=== PATIENT | female | born 1930 | race Hispanic/Latino ===

== ENCOUNTER 2017-10-21 19:10 | Observation (INO) | payer MEDICARE, BC ==
[2017-10-21] MEDS ORDERED: Labetalol 5 mg/ml Inj 20ML IVP STA (19:35)
--- NOTE | 2017-10-21 19:46 | ED PDOC ---
HPI: Hypertension/Hypotension Time Seen by Provider: 10/21/17 19:19 Chief Complaint (Nursing): High Blood Pressure Chief Complaint (Provider): "I dont feel right" History Per: Patient History/Exam Limitations: no limitations Onset/Duration Of Symptoms: Hrs (approx 8), Sudden Onset Current Symptoms Are (Timing): Intermittent Episodes Associated Symptoms: Dizziness, Headache. denies: Focal Weakness Quality Of Symptoms: Extra Beats Severity: Moderate Exacerbating Factor(s): Pos: None Additional Complaint(s): 87yo female c/o "not feeling well"- describes dizziness/ lightheadedness along with mild frontal headache and fatigue. Denies chest pain, SOB, change in speech, vision or focal weakness. Denies vomiting, diarrhea or fever. States adherence to medications today including her BP medications. Also notes chronic L leg paresthesias secondary to low back surgery and mild lower extremity edema. 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 States started on plavix several years ago after syncopal episode in [place] revealing R carotid stenosis. Also notes past hx of "leaky valve" but denies recent echocardiogram. Past Medical History Reviewed: Historical Data, Nursing Documentation, Vital Signs Vital Signs: Last Vital Signs Temp 97 F L 10/21/17 19:16 Pulse 76 10/21/17 19:16 Resp 16 10/21/17 19:16 BP 208/96 H 10/21/17 19:16 Pulse Ox 97 10/21/17 19:16 - Medical History PMH: Diabetes, HTN Other PMH: carotid stenosis - Surgical History Other surgeries: hysterectomy, low back sx - Family History Family History: States: Unknown Family Hx - Social History Current smoker - smoking cessation education provided: No - Home Medications Home Medications: Ambulatory Orders Medication Instructions Recorded Aspirin [Ecotrin] 81 mg PO DAILY 10/21/17 Clopidogrel [Plavix] 75 mg PO DAILY 10/21/17 Metoprolol Succinate [Toprol XL] 25 mg PO DAILY 10/21/17 Olmesartan/Hydrochlorothiazide 1 tab PO DAILY 10/21/17 [Benicar Hct 40-12.5 mg Tablet] Rosuvastatin Calcium [Crestor] 10 mg PO DAILY 10/21/17 metFORMIN [glucOPHAGE] 500 mg PO BID 10/21/17 - Allergies Allergies/Adverse Reactions: Allergies Allergy/AdvReac Type Severity Reaction Status Date / Time No Known Allergies Allergy Verified 10/21/17 19:16 Review of Systems Constitutional: Positive for: Weakness. Negative for: Fever Eyes: Negative for: Vision Change ENT: Negative for: Ear Pain, Ear Discharge, Throat Pain Cardiovascular: Positive for: Palpitations, Edema, Light Headedness. Negative for: Chest Pain Respiratory: Negative for: Cough, Shortness of Breath Gastrointestinal: Negative for: Nausea, Vomiting, Abdominal Pain Genitourinary Female: Negative for: Dysuria, Frequency Musculoskeletal: Negative for: Neck Pain Skin: Negative for: Rash, Lesions, Jaundice Neurological: Positive for: Weakness (generalized), Headache, Dizziness. Negative for: Numbness, Change in Speech, Confusion, Seizures Psych: Negative for: Anxiety, Depression Physical Exam - Reviewed Nursing Documentation Reviewed: Yes Vital Signs Reviewed: Yes - Physical Exam Appears: Positive for: Well, Non-toxic, No Acute Distress Head Exam: Positive for: ATRAUMATIC, NORMAL INSPECTION, NORMOCEPHALIC Skin: Positive for: Normal Color, Warm, DRY Eye Exam: Positive for: EOMI, Normal appearance, PERRL ENT: Positive for: Normal ENT Inspection Neck: Positive for: Normal, Painless ROM Cardiovascular/Chest: Positive for: Regular Rate, Rhythm, Irregularly Irregular (frequent PVCS). Negative for: Tachycardia Respiratory: Positive for: CNT, Normal Breath Sounds Gastrointestinal/Abdominal: Positive for: Normal Exam, Soft. Negative for: Tenderness Back: Positive for: Normal Inspection Extremity: Positive for: Normal ROM, Swelling (mild LE edema b/l) Neurologic/Psych: Positive for: Alert, inserter II-XII (intact), Oriented, Cerebellar Tests (intact finger to nose). Negative for: Motor/Sensory Deficits (strength 5/5 all ext), Aphasia, Facial Droop - Laboratory Results Result Diagrams: 10/21/17 19:41 10/21/17 19:41 - ECG ECG: Positive for: Interpreted By Me ECG Rhythm: Positive for: Sinus Rhythm Interpretation Of Abn EKG: frequent PVCs, trigeminy, 1st deg AV block O2 Sat by Pulse Oximetry: 97 Medical Decision Making Medical Decision Making: workup for presyncope with accelerated BP initiated labs / EKG/ CT brain ordered labetolol 10mg IV ordered She continues to deny chest pain COMPARISON: CT - HEAD^HEAD_ROUTINE (ADULT) 2010-06-18 01:02 FINDINGS: Brain: No intracranial hemorrhage. There is global parenchymal volume loss. Periventricular hypoattenuation is likely due to small vessel disease. No evidence of evolved territorial infarct or cerebral edema. No mass effect or midline shift. Ventricles: Prominent ventricles secondary to volume loss. Bones/joints: No acute osseous abnormality. Soft tissues: No soft tissue swelling. Sinuses: Visualized paranasal sinuses are clear. Mastoid air cells: Left mastoid effusion. IMPRESSION: 1. No acute intracranial findings. 2. Left mastoid effusion. Thank you for allowing us to participate in the care of your patient. Dictated and Authenticated by: Horace Molina MD 10/21/2017 8:37 PM Eastern Time ([place] & [place]) = labs reviewed and clinically unremarkable, mild elev BUN trop/BNP neg Patient denies any ear pain, L ear /mastoid exam nontender, no erythema, likely not mastoiditis D/w Dr Ramirez hospitalist 950p for tele obs given presentation and clinical findings, EKG changes, marked elev BP and risk factors. Disposition - Disposition Forms: [employer] ([place])
[2017-10-21 19:58] LABS: BASO # 0.1 K/uL (0.0-0.2); BASO % 0.6 % (0.0-2.0); EOS # 0.2 K/uL (0.0-0.7); EOS % 2.4 % (0.0-4.0); LYMPH % 35.1 % (20.0-40.0); MEAN CELL VOLUME 92.1 fl (81.0-99.0); MEAN CORPUSCULAR HEMOGLOBIN 30.8 pg (27.0-31.0); MEAN CORPUSCULAR HGB CONC 33.4 g/dL (33.0-37.0); MEAN PLATELET VOLUME 9.6 fl (7.2-11.7); MONO # 0.7 K/uL (0.0-0.8); MONO % 7.9 % (0.0-10.0); NEUT # 4.7 K/uL (1.8-7.0); RBC 3.91 Mil/uL (3.80-5.20); RED CELL DISTRIBUTION WIDTH 13.9 % (11.5-14.5); WHITE BLOOD COUNT 8.7 K/uL (4.8-10.8)
[2017-10-21 20:02] LABS: INR 0.9 (0.9-1.2); PARTIAL THROMBOPLASTIN TIME 31.6 Seconds (25.6-37.1); PROTHROMBIN TIME 9.9 Seconds (9.8-13.1)
[2017-10-21 20:06] LABS: ALB/GLOB RATIO 1.3 (1.0-2.1); ALBUMIN 4.2 g/dL (3.5-5.0); ALT/SGPT 34 U/L (9-52); AST/SGOT 29 U/L (14-36); BLOOD UREA NITROGEN 25 mg/dl (7-17); CALCIUM 9.3 mg/dL (8.4-10.2); GFR AFRICAN-AMERICAN > 60; GFR NON-AFRICAN AMERICAN 53
[2017-10-21 20:17] LABS: B-TYPE NATRIURETIC PEPTIDE 155 pg/ml (0-900)
[2017-10-21] MEDS ORDERED: Labetalol 5 mg/ml Inj 20ML IVP PRN (21:53)
--- NOTE | 2017-10-21 21:53 | CP.PCM.HP ---
History of Present Illness - History of Present Illness History of Present Illness: CC: Feeling poorly, dizziness HPI: This is an 87 y/o female with HTN and DM2, but otherwise fairly healthy, who comes in with c/o generally feeling poorly since this AM. States she has been feeling cold, shaky, dizzy, and has had a headache. She took her BP at home and it was SBP 190+, so she called EMS. When they came, they retook BP and SBP was > 200, so they brought her to ER. She rec'd 10 mg of labetolol in ED and most of her symptoms have improved. She states that she has had similar symptoms off and on for the past month or so possibly. States that she had been dx'ed with R carotid stenosis on doppler and a 'leaky heart valve' on echo 5+ years ago, but not had much f/u on those, aside form being put on ASA and Plavix. Denies any CP, SOB, or actual syncope. No other c/c. 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, HLD/ cardiovascular disease SHx: Hysterectomy, back surgery, GB, cataracts Allergies: NKDA Medications: per med rec Family Hx: reviewed, no relevant findings Social Hx: Lives alone here, but with family in [place]; Hx of tobacco distantly; Occ EtOH Surrogate: Daughter, info on chart Present on Admission - Present on Admission Any Indicators Present on Admission: No Past Patient History - Past Social History Smoking Status: Never Smoked - CARDIAC Hx Hypertension: Yes - ENDOCRINE/METABOLIC Hx Diabetes Mellitus Type 2: Yes - PSYCHIATRIC Hx Substance Use: No - SURGICAL HISTORY Hx Cholecystectomy: Yes Hx Hysterectomy: Yes - ANESTHESIA Hx Anesthesia: Yes Hx Anesthesia Reactions: No Hx Malignant Hyperthermia: No Meds Allergies/Adverse Reactions: Allergies Allergy/AdvReac Type Severity Reaction Status Date / Time No Known Allergies Allergy Verified 10/21/17 19:16 Physical Exam - Constitutional Appears: No Acute Distress - Head Exam Head Exam: ATRAUMATIC, NORMOCEPHALIC - Eye Exam Eye Exam: EOMI, PERRL - ENT Exam ENT Exam: Mucous Membranes Moist - Neck Exam Neck exam: Positive for: Full Rom Additional comments: no carotid bruits auscultated - Respiratory Exam Respiratory Exam: Clear to Auscultation Bilateral, NORMAL BREATHING PATTERN - Cardiovascular Exam Cardiovascular Exam: REGULAR RHYTHM, +S1, +S2 Additional comments: no obvious murmurs - GI/Abdominal Exam GI & Abdominal Exam: Normal Bowel Sounds, Soft - Extremities Exam Extremities exam: Positive for: full ROM, normal inspection - Neurological Exam Neurological exam: Alert, CN II-XII Intact, Oriented x3 - Psychiatric Exam Psychiatric exam: Normal Affect, Normal Mood - Skin Skin Exam: Dry, Warm Results - Vital Signs Recent Vital Signs: Last Vital Signs Temp 97 F L 10/21/17 19:16 Pulse 93 H 10/21/17 21:30 Resp 18 10/21/17 21:30 BP 181/83 H 10/21/17 21:30 Pulse Ox 97 10/21/17 21:45 - Labs Result Diagrams: 10/21/17 19:41 10/21/17 19:41 Labs: Laboratory Results - last 24 hr 10/21/17 10/21/17 10/21/17 19:27 19:41 19:41 WBC 8.7 RBC 3.91 Hgb 12.0 Hct 36.0 MCV 92.1 MCH 30.8 MCHC 33.4 RDW 13.9 Plt Count 278 MPV 9.6 Neut % (Auto) 54.0 Lymph % (Auto) 35.1 [place] % (Auto) 7.9 Eos % (Auto) 2.4 Baso % (Auto) 0.6 Neut # (Auto) 4.7 Lymph # (Auto) 3.0 [place] # (Auto) 0.7 Eos # (Auto) 0.2 Baso # (Auto) 0.1 PT INR APTT Sodium 138 Potassium 4.3 Chloride 100 Carbon Dioxide 22 Anion Gap 20 BUN 25 H Creatinine 1.0 Est GFR ( Amer) > 60 Est GFR (Non-Af Amer) 53 POC Glucose (mg/dL) 126 H Random Glucose 134 H Calcium 9.3 Total Bilirubin 0.4 AST 29 ALT 34 Alkaline Phosphatase 74 Troponin I < 0.0120 NT-Pro-B Natriuret Pep 155 Total Protein 7.4 Albumin 4.2 Globulin 3.2 Albumin/Globulin Ratio 1.3 10/21/17 19:41 WBC RBC Hgb Hct MCV MCH MCHC RDW Plt Count MPV Neut % (Auto) Lymph % (Auto) [place] % (Auto) Eos % (Auto) Baso % (Auto) Neut # (Auto) Lymph # (Auto) [place] # (Auto) Eos # (Auto) Baso # (Auto) PT 9.9 INR 0.9 APTT 31.6 Sodium Potassium Chloride Carbon Dioxide Anion Gap BUN Creatinine Est GFR ( Amer) Est GFR (Non-Af Amer) POC Glucose (mg/dL) Random Glucose Calcium Total Bilirubin AST ALT Alkaline Phosphatase Troponin I NT-Pro-B Natriuret Pep Total Protein Albumin Globulin Albumin/Globulin Ratio - EKG Data EKG Interpreted by: Myself EKG shows normal: Sinus rhythm Rate: Normal - EKG Data EKG comments: 1 deg AV bloc, freq PVCs - Imaging and Cardiology CT scan - head Status: Image reviewed by me (1. No acute intracranial findings.), Report reviewed by me Chest x-ray Status: Image reviewed by me (No obvious findings on CXR) Assessment & Plan (1) Dizziness and giddiness Assessment and Plan: 87 y/o female with HTN/DM2/CVX presenting with ?dizziness and multiple nonspec symptoms. 1) Dizziness -Tele -Serial trops -Echo in AM -Dopplers in AM -Consider cardiology and/or neuro consult as necessary 2) Uncontrolled HTN -Continue home BP medications -Labetolol IV PRN -Serial trops as above 3) DM2 -ACHS accuchecs -SSI -DM diet -Resume metformin in AM if no imaging with contrast indicated 4) DVT PPx -- SQ Lovenox Status: Acute (2) DM2 (diabetes mellitus, type 2) Status: Acute (3) Accelerated hypertension Status: Acute (4) DVT prophylaxis Status: Acute
[2017-10-22 05:55] LABS: HEMOGLOBIN 11.1 g/dL (12.0-16.0); MEAN CELL VOLUME 91.9 fl (81.0-99.0); MEAN CORPUSCULAR HEMOGLOBIN 30.7 pg (27.0-31.0); MEAN CORPUSCULAR HGB CONC 33.4 g/dL (33.0-37.0); RBC 3.62 Mil/uL (3.80-5.20); WHITE BLOOD COUNT 10.7 K/uL (4.8-10.8)
[2017-10-22 06:36] LABS: BLOOD UREA NITROGEN 21 mg/dl (7-17); CALCIUM 9.1 mg/dL (8.4-10.2); GFR AFRICAN-AMERICAN > 60; GFR NON-AFRICAN AMERICAN 53
[2017-10-22] MEDS ORDERED: Enoxaparin 80 mg Syringe SC STA (06:48)
[2017-10-22 07:25] LABS: URINE BACTERIA RARE (<OCC); URINE BILIRUBIN NEGATIVE (NEGATIVE); URINE BLOOD NEGATIVE (NEGATIVE); URINE CLARITY CLEAR (Clear); URINE COLOR STRAW (YELLOW); URINE GLUCOSE (UA) NEG (Normal); URINE LEUKOCYTE ESTERASE SMALL Leu/uL (Negative); URINE PROTEIN NEGATIVE (NEGATIVE); URINE UROBILINOGEN 0.2-1.0 mg/dL (0.2-1.0)
[2017-10-22] MEDS: Insulin Lispro (humaLOG) 100 Units/ml Inj SC SCH ×3 (07:29→17:31)
--- NOTE | 2017-10-22 07:39 | CT ---
PROCEDURE: CT HEAD WITHOUT CONTRAST. HISTORY: r/o ICH. High blood pressure. COMPARISON: 06/18/2010 TECHNIQUE: Axial computed tomography images were obtained through the head/brain without intravenous contrast. Radiation dose: Total exam DLP = 783 mGy-cm. This CT exam was performed using one or more of the following dose reduction techniques: Automated exposure control, adjustment of the mA and/or kV according to patient size, and/or use of iterative reconstruction technique. FINDINGS: HEMORRHAGE: No intracranial hemorrhage. BRAIN: No mass effect or edema. Scattered focal lucencies in the subcortical and periventricular white matter suggestive for chronic microvascular ischemic change. Global parenchymal volume loss. More confluent low attenuation seen within the left periventricular white matter at the level of the anterior frontal horn on series 4, image 27 may represent chronic ischemic change. VENTRICLES: Prominent ventricles secondary to volume loss. CALVARIUM: Unremarkable. PARANASAL SINUSES: Unremarkable as visualized. No significant inflammatory changes. MASTOID AIR CELLS: Left mastoid effusion. OTHER FINDINGS: None. IMPRESSION: No acute intracranial abnormality. Chronic microvascular ischemic changes. Left mastoid effusion. If symptoms persists, consider further evaluation with MRI. These findings were preliminarily reported at 8:37 p.m. on 10/21/[address] Horace Molina from [facility].
[2017-10-22 08:05] VITALS: RESP 20
--- NOTE | 2017-10-22 08:44 | RAD ---
HISTORY: generalized weakness COMPARISON: Chest radiograph dated 03/15/2010. FINDINGS: LUNGS: Left midlung scarring. No active pulmonary disease. PLEURA: No significant pleural effusion identified, no pneumothorax apparent. CARDIOVASCULAR: Mediastinal silhouette unchanged. OSSEOUS STRUCTURES: Unchanged. VISUALIZED UPPER ABDOMEN: Right upper quadrant surgical clips redemonstrated. OTHER FINDINGS: None. IMPRESSION: No active disease.
[2017-10-22] MEDS ORDERED: Enoxaparin 40 mg Syringe SC SCH (09:00)
[2017-10-22] MEDS ORDERED: Patient's Own Med (Olmesartan/Hydrochlorothiazide [Benicar Hct 40-12.5 Mg Tablet] 1 TAB) PO SCH (09:00)
[2017-10-22] MEDS ORDERED: Metoprolol Succinate 25 mg XL Tab PO SCH (09:00)
--- NOTE | 2017-10-22 09:55 | CP.PCM.CON ---
History of Present Illness - History of Present Illness History of Present Illness: This 87-year-old female , a hypertensive and diabetic for more than 10 years came into the hospital complaining of a vague sense of discomfort and a sense of lightheadedness and weakness. She denies any chest pain or shortness of breath. A blood sample drawn for troponin estimation after her admission is elevated and hence this consultation. The patient is an ex-smoker who has not smoked for more than 10 years. She goes up and down a flight of stairs number of times in her house without experiencing any chest pain. Otherwise she is fairly sedentary. She has a history of back surgery more than 15 years back and has had numbness in right lower extremity. She denies any prior history of cardiac problems such as chest pain on exertion or shortness of breath with minimal exertion. Physical examination shows an elderly lady who is quite alert awake and coherent and quite free off any discomfort. Her pulse rate was 76 bpm and regular and her blood pressure was 160/60 mmHg. Her jugular venous pressure was not elevated and there was minimal pitting edema over left lower extremity. Her pedal pulses were well felt. A faint bruit was audible over the right carotid artery. The apex was not palpable. The first and second heart sounds are normal. There was no murmur or gallop there were no rales. Her abdomen was soft liver and spleen are not palpable. Her electrocardiogram at admission showed sinus rhythm with occasional premature ventricular beats. Lead V2 had a small R wave and upright T waves. Electro-cardiogram taken this morning shows inverted T waves in lead V2. Her lab tests show normal troponin at admission which on subsequent occasions has significantly gone up exceeding 2 ng per mL. Rest of her labs were noted. Impression: Acute non-Q-wave myocardial infarction.(NSTEMI) in a patient with hypertension and diabetes. The patient at this juncture is hemodynamically stable and chest pain-free. I've spoken with her daughter and the patient herself and I have strongly recommended proceeding with early coronary angiogram with an eye towards revascularization. In the meantime the patient has been started on aspirin and Plavix. Past Patient History - Past Medical History & Family History Past Medical History?: Yes - Past Social History Smoking Status: Never Smoked - CARDIAC Hx Cardiac Disorders: Yes Hx Hypercholesterolemia: Yes Hx Hypertension: Yes Other/Comment: Carotid stenosis - PULMONARY Hx Respiratory Disorders: No - NEUROLOGICAL Hx Neurological Disorder: No - HEENT Hx HEENT Problems: Yes Hx Cataracts: Yes - RENAL Hx Chronic Kidney Disease: No - ENDOCRINE/METABOLIC Hx Endocrine Disorders: Yes Hx Diabetes Mellitus Type 2: Yes - HEMATOLOGICAL/ONCOLOGICAL Hx Blood Disorders: No - INTEGUMENTARY Hx Dermatological Problems: No - MUSCULOSKELETAL/RHEUMATOLOGICAL Hx Musculoskeletal Disorders: No Hx Falls: No - GASTROINTESTINAL Hx Gastrointestinal Disorders: No - GENITOURINARY/GYNECOLOGICAL Hx Genitourinary Disorders: No - PSYCHIATRIC Hx Psychophysiologic Disorder: No Hx Substance Use: No - SURGICAL HISTORY Hx Surgeries: Yes Hx Cholecystectomy: Yes Hx Hysterectomy: Yes Other/Comment: Back surgery - ANESTHESIA Hx Anesthesia: Yes Hx Anesthesia Reactions: No Hx Malignant Hyperthermia: No Meds Allergies/Adverse Reactions: Allergies Allergy/AdvReac Type Severity Reaction Status Date / Time No Known Allergies Allergy Verified 10/21/17 19:16 - Medications Medications: Current Medications Aspirin (Aspirin) 325 mg PO DAILY [facility] Last Admin: 10/22/17 08:50 Dose: 325 mg Atorvastatin Calcium (Lipitor) 40 mg PO [facility] Clopidogrel Bisulfate (Plavix) 75 mg PO DAILY [facility] Last Admin: 10/22/17 08:47 Dose: 75 mg Hydrochlorothiazide (Microzide) 12.5 mg PO DAILY [facility] Last Admin: 10/22/17 08:47 Dose: 12.5 mg Insulin Human Lispro (Humalog) 0 units SC [facility] PRN Reason: Protocol Last Admin: 10/22/17 07:29 Dose: Not Given Labetalol HCl (Trandate) 10 mg IVP Q6H PRN PRN Reason: SBP > 180 Losartan Potassium (Cozaar) 100 mg PO DAILY [facility] Last Admin: 10/22/17 08:48 Dose: 100 mg Metoprolol Succinate (Toprol Xl) 25 mg PO DAILY [facility] Last Admin: 10/22/17 08:47 Dose: 25 mg Results - Vital Signs Recent Vital Signs: Last Vital Signs Temp 98.0 F 10/22/17 08:04 Pulse 74 10/22/17 08:48 Resp 20 10/22/17 08:04 BP 176/77 H 10/22/17 08:48 Pulse Ox 96 10/22/17 08:04 - Labs Result Diagrams: 10/22/17 04:45 10/22/17 04:45 Labs: Laboratory Results - last 24 hr 0410/21/17 10/21/17 19:27 19:41 19:41 WBC 8.7 RBC 3.91 Hgb 12.0 Hct 36.0 MCV 92.1 MCH 30.8 MCHC 33.4 RDW 13.9 Plt Count 278 MPV 9.6 Neut % (Auto) 54.0 Lymph % (Auto) 35.1 [place] % (Auto) 7.9 Eos % (Auto) 2.4 Baso % (Auto) 0.6 Neut # (Auto) 4.7 Lymph # (Auto) 3.0 [place] # (Auto) 0.7 Eos # (Auto) 0.2 Baso # (Auto) 0.1 PT INR APTT Sodium 138 Potassium 4.3 Chloride 100 Carbon Dioxide 22 Anion Gap 20 BUN 25 H Creatinine 1.0 Est GFR ( Amer) > 60 Est GFR (Non-Af Amer) 53 POC Glucose (mg/dL) 126 H Random Glucose 134 H Calcium 9.3 Total Bilirubin 0.4 AST 29 ALT 34 Alkaline Phosphatase 74 Troponin I < 0.0120 NT-Pro-B Natriuret Pep 155 Total Protein 7.4 Albumin 4.2 Globulin 3.2 Albumin/Globulin Ratio 1.3 Urine Color Urine Clarity Urine pH Ur Specific [place] Urine Protein Urine Glucose (UA) Urine Ketones Urine Blood Urine Nitrate Urine Bilirubin Urine Urobilinogen Ur Leukocyte Esterase Urine RBC (Auto) Urine Microscopic WBC Urine Bacteria 10/21/17 10/21/17 10/22/17 19:41 22:05 04:45 WBC 10.7 RBC 3.62 L Hgb 11.1 L Hct 33.3 L MCV 91.9 MCH 30.7 MCHC 33.4 RDW 14.0 Plt Count 256 MPV Neut % (Auto) Lymph % (Auto) [place] % (Auto) Eos % (Auto) Baso % (Auto) Neut # (Auto) Lymph # (Auto) [place] # (Auto) Eos # (Auto) Baso # (Auto) PT 9.9 INR 0.9 APTT 31.6 Sodium Potassium Chloride Carbon Dioxide Anion Gap BUN Creatinine Est GFR ( Amer) Est GFR (Non-Af Amer) POC Glucose (mg/dL) 117 H Random Glucose Calcium Total Bilirubin AST ALT Alkaline Phosphatase Troponin I NT-Pro-B Natriuret Pep Total Protein Albumin Globulin Albumin/Globulin Ratio Urine Color Urine Clarity Urine pH Ur Specific [place] Urine Protein Urine Glucose (UA) Urine Ketones Urine Blood Urine Nitrate Urine Bilirubin Urine Urobilinogen Ur Leukocyte Esterase Urine RBC (Auto) Urine Microscopic WBC Urine Bacteria 10/22/17 10/22/17 10/22/17 04:45 05:31 07:11 WBC RBC Hgb Hct MCV MCH MCHC RDW Plt Count MPV Neut % (Auto) Lymph % (Auto) [place] % (Auto) Eos % (Auto) Baso % (Auto) Neut # (Auto) Lymph # (Auto) [place] # (Auto) Eos # (Auto) Baso # (Auto) PT INR APTT Sodium 141 Potassium 4.6 Chloride 102 Carbon Dioxide 27 Anion Gap 17 BUN 21 H Creatinine 1.0 Est GFR ( Amer) > 60 Est GFR (Non-Af Amer) 53 POC Glucose (mg/dL) 106 Random Glucose 117 H Calcium 9.1 Total Bilirubin AST ALT Alkaline Phosphatase Troponin I 2.8400 H* NT-Pro-B Natriuret Pep Total Protein Albumin Globulin Albumin/Globulin Ratio Urine Color Straw Urine Clarity Clear Urine pH 7.0 Ur Specific [place] 1.005 Urine Protein Negative Urine Glucose (UA) Neg Urine Ketones Negative Urine Blood Negative Urine Nitrate Negative Urine Bilirubin Negative Urine Urobilinogen 0.2-1.0 Ur Leukocyte Esterase Small Urine RBC (Auto) < 1 Urine Microscopic WBC 3 Urine Bacteria Rare 10/22/17 07:11 WBC RBC Hgb Hct MCV MCH MCHC RDW Plt Count MPV Neut % (Auto) Lymph % (Auto) [place] % (Auto) Eos % (Auto) Baso % (Auto) Neut # (Auto) Lymph # (Auto) [place] # (Auto) Eos # (Auto) Baso # (Auto) PT INR APTT Sodium Potassium Chloride Carbon Dioxide Anion Gap BUN Creatinine Est GFR ( Amer) Est GFR (Non-Af Amer) POC Glucose (mg/dL) Random Glucose Calcium Total Bilirubin AST ALT Alkaline Phosphatase Troponin I 2.3200 H* NT-Pro-B Natriuret Pep Total Protein Albumin Globulin Albumin/Globulin Ratio Urine Color Urine Clarity Urine pH Ur Specific [place] Urine Protein Urine Glucose (UA) Urine Ketones Urine Blood Urine Nitrate Urine Bilirubin Urine Urobilinogen Ur Leukocyte Esterase Urine RBC (Auto) Urine Microscopic WBC Urine Bacteria
--- NOTE | 2017-10-22 12:09 | CP.PCM.PN ---
Subjective - Date & Time of Evaluation Date of Evaluation: 10/22/17 Time of Evaluation: 11:00 - Subjective Subjective: Pt denies CP no palpitation no dizziness at present no abd pain denies N/V discussed plan for Cardiac cath - pt agreed to the procedure Objective - Vital Signs/Intake and Output Vital Signs (last 24 hours): Temp Pulse Resp BP Pulse Ox 98 F 74 20 176/77 H 96 10/22/17 09:00 10/22/17 09:00 10/22/17 09:00 10/22/17 09:00 10/22/17 09:00 - Medications Medications: Current Medications Aspirin (Aspirin) 325 mg PO DAILY [facility] Last Admin: 10/22/17 08:50 Dose: 325 mg Atorvastatin Calcium (Lipitor) 40 mg PO [facility] Clopidogrel Bisulfate (Plavix) 75 mg PO DAILY [facility] Last Admin: 10/22/17 08:47 Dose: 75 mg Hydrochlorothiazide (Microzide) 12.5 mg PO DAILY [facility] Last Admin: 10/22/17 08:47 Dose: 12.5 mg Insulin Human Lispro (Humalog) 0 units SC ACHS [facility] PRN Reason: Protocol Last Admin: 10/22/17 07:29 Dose: Not Given Labetalol HCl (Trandate) 10 mg IVP Q6H PRN PRN Reason: SBP > 180 Losartan Potassium (Cozaar) 100 mg PO DAILY [facility] Last Admin: 10/22/17 08:48 Dose: 100 mg Metoprolol Succinate (Toprol Xl) 25 mg PO DAILY [facility] Last Admin: 10/22/17 08:47 Dose: 25 mg - Labs Labs: 10/22/17 04:45 10/22/17 04:45 PT 9.9 Seconds (9.8-13.1) 10/21/17 19:41 INR 0.9 (0.9-1.2) 10/21/17 19:41 APTT 31.6 Seconds (25.6-37.1) 10/21/17 19:41 - Constitutional Appears: No Acute Distress - Head Exam Head Exam: ATRAUMATIC, NORMAL INSPECTION, NORMOCEPHALIC - Eye Exam Eye Exam: EOMI, Normal appearance Pupil Exam: NORMAL ACCOMODATION - ENT Exam ENT Exam: Mucous Membranes Moist, Normal External Ear Exam - Neck Exam Neck Exam: Full ROM. absent: Meningismus - Respiratory Exam Respiratory Exam: NORMAL BREATHING PATTERN. absent: Rales, Respiratory Distress - Cardiovascular Exam Cardiovascular Exam: REGULAR RHYTHM, +S1, +S2 - GI/Abdominal Exam GI & Abdominal Exam: Soft, Normal Bowel Sounds. absent: Tenderness - Extremities Exam Extremities Exam: Full ROM, Normal Capillary Refill. absent: Calf Tenderness - Back Exam Back Exam: Full ROM. absent: CVA tenderness (L), CVA tenderness (R) - Neurological Exam Neurological Exam: Alert, Awake, CN II-XII Intact, Oriented x3 Neuro motor strength exam: Left Upper Extremity: 5, Right Upper Extremity: 5, Left Lower Extremity: 5, Right Lower Extremity: 5 - Psychiatric Exam Psychiatric exam: Normal Affect, Normal Mood - Skin Skin Exam: Dry, Normal Color, Warm Assessment and Plan (1) NSTEMI (non-ST elevated myocardial infarction) Status: Acute (2) Accelerated hypertension Status: Acute (3) DM2 (diabetes mellitus, type 2) Status: Chronic (4) DVT prophylaxis Status: Acute - Assessment and Plan (Free Text) Assessment: 87y/o lady with hx of HTN, DM, was brought in by ambulance, she was feeling weak, giddy and lightheaded at home so she took her BP and her BP was elevated so she called 911. She denies any CP, no palpitation, no SOB. 2nd Troponin came back + at 2.8. Cardiology was consulted- Dr Jan Malloy rec Cardiac catheterization. Plan to transfer pt to [facility] for Cardiac Cath (1) NSTEMI (non-ST elevated myocardial infarction) Status: Acute pt placed in Tele Troponin elevated EKG change : V2 T wave inversion cont ASA, Plavix, statin, BB , ARB and therapeutic Lovenox Dr Jan Malloy consulted- rec Cardiac cath Plan for transfer to [facility] for [facility] ECHO : EF =35-40%, mod to sever hypokinesia of the ant and septal wall (2) Accelerated hypertension Status: Acute Labetatlol 10 mg IV prn Increase Toprol to 50 mg daily cont Losartan (3) DM2 (diabetes mellitus, type 2) Status: Chronic accucheck with coverage d/c Metformin as pt is going for Cardiac cath (4) DVT prophylaxis Status: Acute Pt is on therapeutic Lovenox
--- NOTE | 2017-10-22 12:13 | CARD ---
APPROVED REPORT EXAM: Two-dimensional and M-mode echocardiogram with Doppler and color Doppler. Other Information Quality : GoodRhythm : NSR INDICATION Syncope 2D DIMENSIONS IVSd0.67 (0.7-1.1cm)LVDd5.16 (3.9-5.9cm) LVOT Diameter2.13 (1.8-2.4cm)PWd0.71 (0.7-1.1cm) IVSs0.85 (0.8-1.2cm)LVDs4.30 (2.5-4.0cm) FS (%) 16.8 %PWs0.85 (0.8-1.2cm) M-Mode DIMENSIONS Left Atrium (MM)4.68 (2.5-4.0cm)IVSd0.71 (0.7-1.1cm) Aortic Root2.91 (2.2-3.7cm)LVDd6.59 (4.0-5.6cm) Aortic Cusp Exc.2.03 (1.5-2.0cm)PWd0.94 (0.7-1.1cm) IVSs0.62 cmFS (%) 20 % LVDs5.29 (2.0-3.8cm)PWs1.15 cm Mitral Valve MV E Gluiflmp88.6cm/sMV DECEL [id number] A Hdbbapdz090.8cm/s MV UPT03qkF/A ratio0.7MVA (PHT)3.27cm2 TDI Lateral E' Peak V8.15cm/sMedial E' Peak V6.93cm/sE/Lateral E'8.9 E/Medial E'10.5 LEFT VENTRICLE The left ventricle is normal size. The systolic function is mildly to moderately impaired. The Ejection Fraction is 35-40%. There is moderate to severe hypokinesis in the anterior and septal wals. Transmitral Doppler flow pattern is Grade I-abnormal relaxation pattern. RIGHT VENTRICLE The right ventricle is normal size. The right ventricular systolic function is normal. ATRIA The left atrium size is normal. The right atrium size is normal. AORTIC VALVE The aortic valve is normal in structure. No aortic regurgitation is present. There is no aortic valvular stenosis. MITRAL VALVE The mitral valve is normal in structure. There is no mitral valve stenosis. Mitral regurgitation is mild to moderate. TRICUSPID VALVE The tricuspid valve is normal in structure. There is no tricuspid valve regurgitation noted. PULMONIC VALVE The pulmonary valve is normal in structure. There is no pulmonic valvular regurgitation. GREAT VESSELS The aortic root is normal in size. The IVC is normal in size and collapses >50% with inspiration. PERICARDIAL EFFUSION The pericardium appears normal. <Conclusion> The left ventricle is normal size. The systolic function is mildly to moderately impaired. The Ejection Fraction is 35-40%. There is moderate to severe hypokinesis in the anterior and septal wals. Mitral regurgitation is mild to moderate.
[2017-10-22 12:25] VITALS: BP 155/78; PULSE 75; TEMP 97.9
--- NOTE | 2017-10-22 12:48 | US ---
PROCEDURE: Duplex ultrasound of the carotid and vertebral arteries. HISTORY: syncope/TIA COMPARISON: None available. TECHNIQUE: Grayscale and duplex Doppler evaluation of the cervical carotid and vertebral arteries were performed. The common carotid, carotid bifurcations and cervical ICA and proximal ECA were evaluated. The vertebral arteries were evaluated for gross patency and direction. FINDINGS: RIGHT CAROTID ARTERIES: Common Carotid Artery: Calcific plaque. Maximal flow velocity of 75.6 cm/s. Carotid Bifurcation: Calcific plaque. Internal Carotid Artery:Calcific plaque. Maximal flow velocity of 93.1 cm/s. External Carotid Artery (proximal branches): Normal. Maximal flow velocity of 77.9 cm/s. ICA/CCA Ratio: 1.6 LEFT CAROTID ARTERIES: Common Carotid Artery: Calcific plaque. Maximal flow velocity of 72.4 cm/s. Carotid Bifurcation: Calcific plaque. Internal Carotid Artery:Calcific plaque. Maximal flow velocity of 70.1 cm/s. External Carotid Artery (proximal branches): Normal. Maximal flow velocity of 100.8 cm/s. ICA/CCA Ratio: 1.0 VERTEBRAL ARTERIES: Right Vertebral Artery: Patent. Antegrade flow. Left Vertebral Artery: Patent. Antegrade flow. OTHER FINDINGS: None. IMPRESSION: Per NASCET criteria, less than 50 percent stenosis of the internal carotid arteries, bilaterally.
--- NOTE | 2017-10-22 13:08 | CP.PCM.PN ---
Subjective - Date & Time of Evaluation Date of Evaluation: 10/22/17 Time of Evaluation: 13:05 - Subjective Subjective: Pt's daughter arrived from [place] Spoke with her and the pt Findings of EKG/Labs and Echo described Early cor angio recommended and accepted by pt and daughter Pt to go to [facility] under Dr. Martinez's care. Pt stable to make the trip Objective - Vital Signs/Intake and Output Vital Signs (last 24 hours): Temp Pulse Resp BP Pulse Ox 97.9 F 75 20 155/78 H 96 10/22/17 12:24 10/22/17 12:24 10/22/17 12:24 10/22/17 12:24 10/22/17 12:24 - Medications Medications: Current Medications Aspirin (Aspirin) 325 mg PO DAILY [facility] Last Admin: 10/22/17 08:50 Dose: 325 mg Atorvastatin Calcium (Lipitor) 40 mg PO HS [facility] Clopidogrel Bisulfate (Plavix) 75 mg PO DAILY [facility] Last Admin: 10/22/17 08:47 Dose: 75 mg Clopidogrel Bisulfate (Plavix) 525 mg PO ONCE ONE Stop: 10/22/17 13:05 Hydrochlorothiazide (Microzide) 12.5 mg PO DAILY [facility] Last Admin: 10/22/17 08:47 Dose: 12.5 mg Insulin Human Lispro (Humalog) 0 units SC ACHS [facility] PRN Reason: Protocol Last Admin: 10/22/17 07:29 Dose: Not Given Labetalol HCl (Trandate) 10 mg IVP Q6H PRN PRN Reason: SBP > 180 Losartan Potassium (Cozaar) 100 mg PO DAILY [facility] Last Admin: 10/22/17 08:48 Dose: 100 mg Metoprolol Succinate (Toprol Xl) 25 mg PO DAILY [facility] Last Admin: 10/22/17 08:47 Dose: 25 mg - Labs Labs: 10/22/17 04:45 10/22/17 04:45 PT 9.9 Seconds (9.8-13.1) 10/21/17 19:41 INR 0.9 (0.9-1.2) 10/21/17 19:41 APTT 31.6 Seconds (25.6-37.1) 10/21/17 19:41
[2017-10-22 13:52] VITALS: O2SAT 98
--- NOTE | 2017-10-22 18:36 | CP.PCM.DIS ---
Provider - Provider Date of Admission: 10/22/17 15:39 Attending physician: Keira Ramirez MD Primary care physician: Dr Garcia Consults: Cardio: Dr Jan Malloy Time Spent in preparation of Discharge (in minutes): 30 Diagnosis - Discharge Diagnosis (1) NSTEMI (non-ST elevated myocardial infarction) Status: Acute (2) Accelerated hypertension Status: Acute (3) DM2 (diabetes mellitus, type 2) Status: Chronic (4) DVT prophylaxis Status: Acute Hospital Course - Lab Results Lab Results: Most Recent Lab Values WBC 10.7 K/uL (4.8-10.8) 10/22/17 04:45 RBC 3.62 Mil/uL (3.80-5.20) L 10/22/17 04:45 Hgb 11.1 g/dL (12.0-16.0) L 10/22/17 04:45 Hct 33.3 % (34.0-47.0) L 10/22/17 04:45 MCV 91.9 fl (81.0-99.0) 10/22/17 04:45 MCH 30.7 pg (27.0-31.0) 10/22/17 04:45 MCHC 33.4 g/dL (33.0-37.0) 10/22/17 04:45 RDW 14.0 % (11.5-14.5) 10/22/17 04:45 Plt Count 256 K/uL (130-400) 10/22/17 04:45 MPV 9.6 fl (7.2-11.7) 10/21/17 19:41 Neut % (Auto) 54.0 % (50.0-75.0) 10/21/17 19:41 Lymph % (Auto) 35.1 % (20.0-40.0) 10/21/17 19:41 Bee % (Auto) 7.9 % (0.0-10.0) 10/21/17 19:41 Eos % (Auto) 2.4 % (0.0-4.0) 10/21/17 19:41 Baso % (Auto) 0.6 % (0.0-2.0) 10/21/17 19:41 Neut # (Auto) 4.7 K/uL (1.8-7.0) 10/21/17 19:41 Lymph # (Auto) 3.0 K/uL (1.0-4.3) 10/21/17 19:41 Bee # (Auto) 0.7 K/uL (0.0-0.8) 10/21/17 19:41 Eos # (Auto) 0.2 K/uL (0.0-0.7) 10/21/17 19:41 Baso # (Auto) 0.1 K/uL (0.0-0.2) 10/21/17 19:41 PT 9.9 Seconds (9.8-13.1) 10/21/17 19:41 INR 0.9 (0.9-1.2) 10/21/17 19:41 APTT 31.6 Seconds (25.6-37.1) 10/21/17 19:41 Sodium 141 mmol/l (132-148) 10/22/17 04:45 Potassium 4.6 MMOL/L (3.6-5.0) 10/22/17 04:45 Chloride 102 mmol/L (98-107) 10/22/17 04:45 Carbon Dioxide 27 mmol/L (22-30) 10/22/17 04:45 Anion Gap 17 (10-20) 10/22/17 04:45 BUN 21 mg/dl (7-17) H 10/22/17 04:45 Creatinine 1.0 mg/dl (0.7-1.2) 10/22/17 04:45 Est GFR ( Amer) > 60 10/22/17 04:45 Est GFR (Non-Af Amer) 53 10/22/17 04:45 POC Glucose (mg/dL) 127 mg/dL (65-110) H 10/22/17 11:49 Random Glucose 117 mg/dL (65-105) H 10/22/17 04:45 Calcium 9.1 mg/dL (8.4-10.2) 10/22/17 04:45 Total Bilirubin 0.4 mg/dl (0.2-1.3) 10/21/17 19:41 AST 29 U/L (14-36) 10/21/17 19:41 ALT 34 U/L (9-52) 10/21/17 19:41 Alkaline Phosphatase 74 U/L (38-126) 10/21/17 19:41 Troponin I 3.6300 ng/mL (0.00-0.120) H* 10/22/17 12:27 NT-Pro-B Natriuret Pep 155 pg/ml (0-900) 10/21/17 19:41 Total Protein 7.4 G/DL (6.3-8.2) 10/21/17 19:41 Albumin 4.2 g/dL (3.5-5.0) 10/21/17 19:41 Globulin 3.2 gm/dL (2.2-3.9) 10/21/17 19:41 Albumin/Globulin Ratio 1.3 (1.0-2.1) 10/21/17 19:41 Urine Color Straw (YELLOW) 10/22/17 07:11 Urine Clarity Clear (Clear) 10/22/17 07:11 Urine pH 7.0 (5.0-8.0) 10/22/17 07:11 Ur Specific [place] 1.005 (1.003-1.030) 10/22/17 07:11 Urine Protein Negative mg/dL (NEGATIVE) 10/22/17 07:11 Urine Glucose (UA) Neg mg/dL (Normal) 10/22/17 07:11 Urine Ketones Negative mg/dL (NEGATIVE) 10/22/17 07:11 Urine Blood Negative (NEGATIVE) 10/22/17 07:11 Urine Nitrate Negative (NEGATIVE) 10/22/17 07:11 Urine Bilirubin Negative (NEGATIVE) 10/22/17 07:11 Urine Urobilinogen 0.2-1.0 mg/dL (0.2-1.0) 10/22/17 07:11 Ur Leukocyte Esterase Small [place]/uL (Negative) 10/22/17 07:11 Urine RBC (Auto) < 1 /hpf (0-3) 10/22/17 07:11 Urine Microscopic WBC 3 /hpf (0-5) 10/22/17 07:11 Urine Bacteria Rare (<OCC) 10/22/17 07:11 - Hospital Course Hospital Course: 87y/o lady with hx of HTN, DM, was brought in by ambulance, she was feeling weak, giddy and lightheaded at home so she took her BP and her BP was elevated so she called 911. She denies any CP, no palpitation, no SOB. 2nd Troponin came back + at 2.8. Cardiology was consulted- Dr Jan Malloy rec Cardiac catheterization. Plan to transfer pt to [facility] for Cardiac Cath (1) NSTEMI (non-ST elevated myocardial infarction) Status: Acute pt placed in Tele Troponin elevated EKG change : V2 T wave inversion cont ASA, Plavix, statin, BB , ARB and therapeutic Lovenox Dr Jan Malloy consulted- rec Cardiac cath transferred to [facility] for [facility] ECHO : EF =35-40%, mod to sever hypokinesia of the ant and septal wall (2) Accelerated hypertension Status: Acute Labetatlol 10 mg IV prn Increase Toprol to 50 mg daily cont Losartan (3) DM2 (diabetes mellitus, type 2) Status: Chronic accucheck with coverage d/c Metformin as pt is going for Cardiac cath (4) DVT prophylaxis Status: Acute Pt is on therapeutic Lovenox Discharge Exam - Head Exam Head Exam: ATRAUMATIC, NORMAL INSPECTION, NORMOCEPHALIC - Eye Exam Eye Exam: EOMI, Normal appearance Pupil Exam: NORMAL ACCOMODATION - ENT Exam ENT Exam: Mucous Membranes Moist, Normal External Ear Exam - Neck Exam Neck exam: Full Rom - Respiratory Exam Respiratory Exam: NORMAL BREATHING PATTERN. absent: Respiratory Distress - Cardiovascular Exam Cardiovascular Exam: REGULAR RHYTHM, +S1, +S2 - GI/Abdominal Exam GI & Abdominal Exam: Normal Bowel Sounds, Soft. absent: Tenderness - Extremities Exam Extremities exam: full ROM, normal capillary refill, pedal pulses present - Back Exam Back exam: FULL ROM. absent: CVA tenderness (L), CVA tenderness (R) - Neurological Exam Neurological exam: Alert, CN II-XII Intact, Oriented x3, Reflexes Normal - Psychiatric Exam Psychiatric exam: Normal Affect, Normal Mood - Skin Skin Exam: Dry, Normal Color, Warm Discharge Plan - Follow Up Plan Condition: STABLE Disposition: Trans to Other Acute Care Hosp Additional Instructions: transfer to [facility] for Cardiac Cath and further work up Referrals: Nando Malloy MD [Staff Provider] - Rodger Garcia MD [Family Provider] - Waldemar Martinez MD [Medical Doctor] -
[2017-10-23] MEDS ORDERED: Metoprolol Succinate 50 mg XL Tab PO SCH (09:00)
--- NOTE | 2017-10-23 11:32 | CARD ---
APPROVED REPORT EKG Measurement Heart [id number] [place] [id number] <Conclusion> Sinus rhythm with 1st degree AV block Anterior infarct, age undetermined Abnormal ECG
--- NOTE | 2017-10-23 11:34 | CARD ---
APPROVED REPORT EKG Measurement Heart [id number] <Conclusion> Sinus rhythm with 1st degree AV block Anterior infarct, age undetermined Abnormal ECG
--- NOTE | 2017-10-23 11:37 | CARD ---
APPROVED REPORT EKG Measurement Heart [id number] [place] [id number] <Conclusion> Sinus rhythm with 1st degree AV block with frequent premature ventricular complexes Nonspecific ST abnormality Abnormal ECG
== END 2017-10-22 18:53 | disposition short-term general hospital (02) ==
LOC: H.ER 19:10 → H.ERHOLD 21:44 → H.TEL 23:50 → OBSVTOIN 10-22 15:39 → INTOOBSV 10-22 15:39
PROVIDERS: ADMIT Internal Medicine; ATTEND Internal Medicine
DX: I21.4 Non-ST elevation (NSTEMI) myocardial infarction (principal); I49.3 Ventricular premature depolarization; Z79.01 Long term (current) use of anticoagulants; Z79.02 Long term (current) use of antithrombotics/antiplatelets; Z87.891 Personal history of nicotine dependence; Z90.49 Acquired absence of other specified parts of digestive tract; Z90.710 Acquired absence of both cervix and uterus; I65.21 Occlusion and stenosis of right carotid artery; E11.36 Type 2 diabetes mellitus with diabetic cataract; E78.00 Pure hypercholesterolemia, unspecified; I10 Essential (primary) hypertension
CPT/HCPCS: 36415; 70450; 71045; 80048; 80053; 81003; 82948; 83880; 84484; 85025; 85027; 85610; 85730; 93005; 93306; 93880; 96374; 99285; G0378; J1650